=== PATIENT | male | born 1980 | race Caucasian/White ===

== ENCOUNTER 2023-07-02 13:06 | Outpatient (REF) | payer MEDICAID, SELFPAY ==
--- NOTE | ~2023-07-02 | XR_ITS ---
X-RAY BILATERAL WRISTS CLINICAL HISTORY: Primary osteoarthritis. COMPARISON: No relevant prior studies are available for comparison. TECHNIQUE: 4 views of each wrist. FINDINGS: Very subtle nonspecific cortical irregularity in the dorsal aspect of the right wrist. No displaced fractures or subluxation. No significant degenerative changes. No erosions. No abnormal soft tissue calcifications. None is suspected radiopaque foreign bodies. XR/XR hand wrist LT IMPRESSION: Very subtle cortical irregularity in the dorsal right wrist which could be related with a triquetral injury correlate with point tenderness. Otherwise, normal examination.
--- NOTE | ~2023-07-02 | XR_ITS ---
X-RAY BILATERAL WRISTS CLINICAL HISTORY: Primary osteoarthritis. COMPARISON: No relevant prior studies are available for comparison. TECHNIQUE: 4 views of each wrist. FINDINGS: Very subtle nonspecific cortical irregularity in the dorsal aspect of the right wrist. No displaced fractures or subluxation. No significant degenerative changes. No erosions. No abnormal soft tissue calcifications. None is suspected radiopaque foreign bodies. XR/XR hand wrist RT IMPRESSION: Very subtle cortical irregularity in the dorsal right wrist which could be related with a triquetral injury correlate with point tenderness. Otherwise, normal examination.
[2023-07-02 14:20] LABS: MANUAL DIFF FLAG NO
[2023-07-02 15:10] LABS: Basophils Absolute Auto 0.1 X10*3/uL (0.0-0.2); Basophils Percent Auto 1.1 % (0-2); Eosinophils Absolute Auto 0.1 X10*3/uL (0.0-0.4); Eosinophils Percent Auto 1.8 % (0-4); Hemoglobin 15.4 g/dl (14.0-18.0); Imm Gran Abs Auto 0.02 X10*3/uL (0.00-0.03); Imm Gran Pct Auto 0.3 % (0.0-0.4); Lymphocytes Absolute Auto 1.7 X10*3/uL (1.2-4.9); Lymphocytes Percent Auto 27.4 % (20-40); Mean Corpuscular HGB Conc 33.5 g/dl (31.0-36.0); Mean Corpuscular Hemoglobin 30.9 pg (27.0-33.0); Mean Corpuscular Volume 92.4 fL (80.0-98.0); Monocytes Absolute Auto 0.6 X10*3/uL (0.1-1.2); Monocytes Percent Auto 9.8 % (2-11); Neutrophils Absolute Auto 3.7 x10*3/uL (2.0-8.3); Neutrophils Percent Auto 59.6 % (45-73); Platelet Count 190 X10*3/uL (160-400); Red Blood Count 4.98 X10*6/uL (4.60-5.80); Red Cell Distribution Width 12.2 % (11.0-16.0); White Blood Count 6.2 X10*3/uL (4.8-10.8)
[2023-07-02 15:34] LABS: Rheumatoid Factor 13.1 IU/mL (<15.0)
[2023-07-02 15:48] LABS: Alanine Aminotransferase 29 U/L (0-40); Albumin Level 4.7 g/dL (3.5-5.0); Alkaline Phosphatase 65 U/L (39-117); Anion Gap 15 (12-20); Aspartate Amino Transferase 20 U/L (5-37); Bilirubin Total 0.6 mg/dL (0.0-1.0); Blood Urea Nitrogen 22 mg/dL (9-16); C Reactive Protein 0.13 mg/dL (< or = 0.50); Carbon Dioxide 26 mmol/L (22-29); Chloride 104 mmol/L (96-108); Estimated Glomerular Filt Rate > 60; Glucose Random 92 mg/dL (60-115); Potassium 4.1 mmol/L (3.3-5.1); Sodium 141 mmol/L (135-145); Total Protein 8.6 g/dL (6.5-8.0)
[2023-07-02 15:59] LABS: Erythrocyte Sedimentation Rate 7 MM/HR (0-15)
[2023-07-03 05:38] LABS: HBS Num1 0.99 mIU/mL (0-7.99); HBc Num1 0.29 S/CO (0.00-0.79); HBsAGNum1 0.33 S/CO (0.00-0.99); Hepatitis A Antibody IgM 0.28 Index (0-0.79); Hepatitis B Core Antibody Nonreactive (Nonreactive); Hepatitis B Surface Antigen Negative (Negative); ~HepC Num1 0.08 S/CO (0.00-0.79); ~Hepatitis A Antibody IgM Nonreactive (Nonreactive); ~Hepatitis B Surface Antibody NONREACTIVE (Nonreactive); ~Hepatitis C Antibody Nonreactive (Nonreactive)
[2023-07-06 11:44] LABS: Prot Elec - Albumin 4.8 g/dL (3.8-4.8); Prot Elec - Alpha1 0.3 g/dL (0.2-0.3); Prot Elec - Alpha2 0.7 g/dL (0.5-0.9); Prot Elec - Beta 1 0.5 g/dL (0.4-0.6); Prot Elec - Beta 2 0.6 g/dL (0.2-0.5); Prot Elec - Gamma 1.5 g/dL (0.8-1.7); Prot Elec - Total Protein 8.3 g/dL (6.1-8.1)
[2023-07-08 12:04] LABS: IgA 542 mg/dL (47-310); IgG 1790 mg/dL (600-1640); IgM 121 mg/dL (50-300)
[2023-07-08 16:22] LABS: Cyclic Citrullinated Peptide <16 UNITS
== END 2023-07-02 13:07 | disposition home or self-care (01) ==
LOC: HO.LAB 13:06
PROVIDERS: Visit Provider Student in an Organized Health Care Education/Training Program
DX: M19.041 Primary osteoarthritis, right hand (principal); M19.042 Primary osteoarthritis, left hand; M05.9 Rheumatoid arthritis with rheumatoid factor, unspecified; M25.562 Pain in left knee; M25.561 Pain in right knee; Z11.59 Encounter for screening for other viral diseases
CPT/HCPCS: 36415; 73110; 73130; 80053; 82784; 84165; 85025; 85652; 86140; 86200; 86334; 86431; 86704; 86706; 86709; 86803; 87340; 99202

== ENCOUNTER 2023-07-02 13:06 | Outpatient (AMB) | payer MEDICAID, SELFPAY ==
[2023-07-02 13:08] VITALS: BP 118/64; PULSE 73; TEMP 36.8; O2SAT 98; BMI 24.8
--- NOTE | 2023-07-02 13:08 | MHC.OFFVIS ---
Intake Vital Signs 07/02/23 13:08 Height 5 ft 8.9 in Weight 167 lb 12.348 oz BMI 24.8 BP 118/64 Blood Pressure Location Rt brachial Position Sitting Pulse 73 Pulse Source Pulse Oximeter Temp 98.3 F Pulse Oximetry (%) 98 Oxygen Delivery Method Room Air Intake Visit Reasons: Arthralgia Intake Note: Pt presents in office for Arthralgia. Marine Underwriter Required: Yes Marine Underwriter Name: Sebastián [id number] Allergies No Known Allergies Allergy (Verified 07/02/23 13:17) Medication List - Last Reconciled 07/02/23 by Jose Cates MD naproxen 500 mg PO BID HPI HPI Comments History of Present Illness Details This is 43-year-old male who presents for evaluation of bilateral knee pain, worse on the left as well as bilateral index pain. Patient stated that the pain started about a year ago when he was back in [facility]. Stated that he received a couple of glucosamine intramuscular injections which provided some relief. However the 3rd time he got the injection back in October of 2022 it did not help. Patient states that he has bilateral knee pain, worse on the left. Occasionally his sharifa. He gets intermittent pain in his fingers. The pain is not generally will better or worse in the morning. He denies any significant morning stiffness. He takes naproxen 500 mg once or twice a day as needed for joint pain. Denies any skin rashes. He is unaware of any family history of autoimmune rheumatic disease. 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 Review of Systems [facility] Reports arthralgias Physical Exam Vital Signs: Last Vital Signs Temp 98.3 F 07/02/23 13:08 Pulse 73 07/02/23 13:08 BP 118/64 07/02/23 13:08 Pulse Ox 98 07/02/23 13:08 Oxygen Delivery Method Room Air 07/02/23 13:08 BMI result Body Mass Index 24.8 Const General: cooperative, healthy appearing and comfortable Nutritional Appearance: average body habitus Orientation/consciousness: patient oriented x3 Limitations: no limitations HEENT Head: Yes normocephalic and Yes atraumatic Mouth: moist mucous membranes Resp Effort & Inspection: normal respiratory effort and able to speak in complete sentences Auscultation: clear to auscultation bilaterally Cardio Rate: regular rate Rhythm: regular rhythm GI Palpation (GI): Soft to palpation and nontender Skin General skin exam: no rashes or lesions noted Neuro General: patient oriented x3 Extrem Other: Osteoarthritic changes of both hands with prominent Yan's nodes Bilateral 2nd PIP tenderness Bilateral knee crepitus and pain with full flexion and extension Equivocal Arnie's test bilaterally Assessment & Plan Assessment & Plan (1) Rheumatoid factor positive: Code(s): R76.8 - Other specified abnormal immunological findings in serum Plan: This is a 43-year-old [place] male who presents for evaluation of bilateral knee pain and bilateral fingers pain. Labs per PCP showed borderline positive rheumatoid factor. Will order comprehensive serology to screen for underlying autoimmune rheumatic disease. Patient stated that he has had bilateral knee x-rays done. Will retrieve records from his PCP. There is some suggestion of internal derangement of both knees, particularly the left knee. If x-rays were unrevealing will order left knee MRI. Check bilateral hand x-rays. Advised patient to start using Voltaren gel on affected painful areas. Plan I spent 48 minutes reviewing patient's chart, evaluating patient, ordering diagnostic workup, counseling patient and documenting in the chart Orders: Orders XR hand wrist LT Today M19.041 - Primary osteoarthritis, right hand, M19.042 - Primary osteoarthritis, left hand XR hand wrist RT Today M19.041 - Primary osteoarthritis, right hand, M19.042 - Primary osteoarthritis, left hand Cyclic Citrullinated Peptide Today M06.9 - Rheumatoid arthritis, unspecified Comprehensive Met. Panel Today M06.9 - Rheumatoid arthritis, unspecified C Reactive Protein Today M06.9 - Rheumatoid arthritis, unspecified Rheumatoid Factor Today M06.9 - Rheumatoid arthritis, unspecified Complete Blood Count Auto Diff Today M06.9 - Rheumatoid arthritis, unspecified Erythrocyte Sedimentation Rate Today M06.9 - Rheumatoid arthritis, unspecified Immunofixation Pnl, Serum Today M06.9 - Rheumatoid arthritis, unspecified Protein Electrophoresis, Serum Today M06.9 - Rheumatoid arthritis, unspecified Hepatitis A,B,C Profile Today Z11.59 - Encounter for screening for other viral diseases Coding Level of Care Code New Pt Level 4 (83073) Diagnoses Rheumatoid factor positive R76.8
== END 2023-07-02 13:52 | disposition home or self-care (01) ==
PROVIDERS: PCP Registered Nurse; Visit Provider Student in an Organized Health Care Education/Training Program
DX: R76.8 Other specified abnormal immunological findings in serum (principal)
CPT/HCPCS: 99204

== ENCOUNTER 2023-09-03 15:53 | Outpatient (AMB) | payer MEDICAID, SELFPAY ==
[2023-09-03 15:54] VITALS: BP 108/70; PULSE 76; TEMP 36.8; O2SAT 96; BMI 25.1
--- NOTE | 2023-09-03 15:54 | MHC.OFFVIS ---
Intake Vital Signs 09/03/23 15:54 Height 5 ft 8 in Weight 165 lb 2.02 oz BMI 25.1 BP 108/70 Blood Pressure Location Rt brachial Position Sitting Pulse 76 Pulse Source Pulse Oximeter Temp 98.3 F Temp Source Skin Pulse Oximetry (%) 96 Intake Visit Reasons: 2 mnts f/u appt Althralgia Intake Note: Pt seen today for follow up. He is with a friend who is helping translating. C/o pain all the time; after last visit he developed right foot pain. Describes pain as throbbing and varies in severity. Precision Lens Polisher Required: Yes Precision Lens Polisher Name: Nomi [id number] Accompanied by: Friend Nomi Allergies No Known Allergies Allergy (Verified 09/03/23 15:56) Medication List - Last Reconciled 09/03/23 by Jose Cates MD naproxen 500 mg PO BID HPI HPI Comments History of Present Illness Details Patient returns for follow-up after completion of his diagnostic workup. States that a few days after he saw me he started having right big toe pain and minimal swelling that lasted a few days. Improved with naproxen. States that he has been feeling well overall. Without any flare-ups initial history: This is 43-year-old male who presents for evaluation of bilateral knee pain, worse on the left as well as bilateral index pain. Patient stated that the pain started about a year ago when he was back in [facility]. Stated that he received a couple of glucosamine intramuscular injections which provided some relief. However the 3rd time he got the injection back in October of 2022 it did not help. Patient states that he has bilateral knee pain, worse on the left. Occasionally his knee sharifa. He gets intermittent pain in his fingers. The pain is not generally will better or worse in the morning. He denies any significant morning stiffness. He takes naproxen 500 mg once or twice a day as needed for joint pain. Denies any skin rashes. He is unaware of any family history of autoimmune rheumatic disease. 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 Reports arthralgias Physical Exam Vital Signs: Last Vital Signs Temp 98.3 F 09/03/23 15:54 Pulse 76 09/03/23 15:54 BP 108/70 09/03/23 15:54 Pulse Ox 96 09/03/23 15:54 BMI result Body Mass Index 25.1 Const General: cooperative, healthy appearing and comfortable Nutritional Appearance: average body habitus Orientation/consciousness: patient oriented x3 Limitations: no limitations HEENT Head: Yes normocephalic and Yes atraumatic Mouth: moist mucous membranes Resp Effort & Inspection: normal respiratory effort and able to speak in complete sentences Skin General skin exam: no rashes or lesions noted Neuro General: patient oriented x3 Extrem Other: Osteoarthritic changes of both hands with prominent Yan's nodes No swollen or tender joints Normal range of motion of both elbows and shoulders without pain Positive Arnie's test on the right no swelling, warmth or tenderness in both knees with full range of motion Assessment & Plan Assessment & Plan (1) Polyarthralgia: Code(s): M25.50 - Pain in unspecified joint Plan: This is a 43-year-old [place] male who presents for evaluation of flare-ups of multiple joint pain. His most significant episode was in October of 2022 when he he could not move. States that he gets pain in his hands, alternating between his knees and sometimes affecting his feet. He has been feeling well with no major flare-ups over the last few months. Upon evaluation today patient has some findings of osteoarthritis, I do not see any active synovitis. Per records his rheumatoid factor was borderline positive, it was negative on repeat as well as comprehensive serology is and inflammatory markers. His SPEP however is consistent with an acute inflammatory pattern. This can also be nonspecific. His hand x-ray report is within normal Advised patient to call the office when he has a flare-up and we can see him as soon as possible (2) Internal derangement of right knee: Code(s): M23.91 - Unspecified internal derangement of right knee Plan: Positive Arnie's test on the right. Patient states that currently he does not have any knee pain, swelling, locking or buckling. He is not interested in an MRI today Plan I spent 40 minutes reviewing patient's chart, evaluating patient, counseling patient and documenting in the chart Coding Level of Care Code Est Pt Level 4 (16000) Diagnoses Polyarthralgia M25.50 Internal derangement of right knee M23.91
== END 2023-09-03 16:37 | disposition home or self-care (01) ==
LOC: HO.RHE 15:53
PROVIDERS: PCP Registered Nurse; Visit Provider Student in an Organized Health Care Education/Training Program
DX: M25.50 Pain in unspecified joint (principal); M23.91 Unspecified internal derangement of right knee
CPT/HCPCS: 99214

== ENCOUNTER → 2023-09-03 15:53 | Outpatient (BNVA) | payer MEDICAID, SELFPAY | PROVIDERS: Visit Provider Student in an Organized Health Care Education/Training Program | DX: M25.50 Pain in unspecified joint (principal); M23.91 Unspecified internal derangement of right knee | CPT/HCPCS: 99212 ==